=== PATIENT | male | born 1950 | race Caucasian/White ===

== ENCOUNTER 2021-03-27 16:44 | Observation (INO) ==
[2021-03-27] MEDS ORDERED: NORMAL SALINE 1,000 ML IV ONE (17:04)
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
[2021-03-27 17:17] LABS: Hematocrit 33.4 % (42.0-52.0); Mean Cell Volume 99.7 fl (78-100); Mean Corpuscular Hemoglobin 35.8 pg (27-31); Mean Corpuscular Hgb Conc 35.9 g/dl (32-36); Mean Platelet Volume 7.9 fl (8-11.3); Platelet Count 179 K/mm3 (150-450); Red Blood Count 3.35 M/mm3 (4.7-6.0); Red Cell Distribution Width 14.7 % (11.5-14.0); White Blood Count 11.3 K/mm3 (4.0-10.5)
[2021-03-27 17:25] LABS: Total Cells Counted 100
[2021-03-27 17:30] LABS: Albumin * 3.4 gm/dl (3.4-5.0); Anion Gap 10.5 mmol/L (6.8-13.8); Bilirubin, Total 0.8 mg/dL (0.0-1.1); Ca. Corrected For Albumin 8.9 mg/dL (8.4-10.2); Calcium * 8.7 mg/dL (7.9-10.9); Carbon Dioxide 25.1 mmol/L (24-32.6); Potassium 3.6 mmol/L (3.4-4.6); Total Protein 6.4 gm/dL (6.2-8.2)
[2021-03-27 17:39] LABS: Band 1 % (0-2.0); Lymphocyte 16 % (20-51); Monocyte 14 % (0-9); Neutrophil 69 % (42-75); Neutrophil # 7.8 K/mm3 (1.3-6.0); Platelet Estimate Normal (NORMAL); RBC Morphology Normal (NORMAL)
[2021-03-27 17:55] LABS: Urine Appearance Clear (CLEAR); Urine Bilirubin Negative (NEGATIVE); Urine Color Yellow; Urine Ketone Negative (NEGATIVE)
[2021-03-27 17:56] LABS: Urine Bacteria None Seen; Urine Blood 5 /ul (NEGATIVE); Urine Nitrite Negative (NEGATIVE); Urine Protein Negative (NEGATIVE); Urine RBC 0-5 /hpf (0-5); Urine Urobilinogen Normal (NORMAL); Urine WBC 0-5 /hpf (0-5); Urine pH 5.5 pH (5.0-7.0)
--- NOTE | 2021-03-27 20:05 | HP ---
Chief Complaint - Chief Complaint Date of Service: 03/27/21 Time of Service: 20:05 Chief Complaint: frequent falls History of Present Illness: Patient with PMHx of Stage IV lung cancer with liver mets, diabetes, depression presented to the ED after several falls at home. He estimates he's fallen about 15 times in the last couple of weeks. He was reluctant to come in, but his insisted. He was diagnosed with lung cancer about a year ago, and is undergoing chemo in [place]. His chemo was changed about 6 weeks ago. He is not sure what is making him fall, but feels like he has poor balance. Denies fever, sore throat, cough, CP, SOB, diarrhea, dysuria. Workup in the ED showed hyponatremia with sodium of 119, but no other acute findings. WBC slightly high at 11.3, hgb slightly low at 12.0. BP slightly high, 150's/70's, and his RR was briefly high in the ED. He is pleasant and conversational on exam. He has venous stasis changes of his bilateral lower extremities, and extremely flaky skin, which he reports has been present for 30+ years. His legs have also been sensitive to touch, also for several decades. His left hand wrist and very painful and swollen, but no obvious fracture seen on xrays - official read pending. He is admitted for fluids for hyponatremia felt to be due to possible SIADH, but will review [facility] records for more info. Will also order PT eval. Medical History (Last Reviewed 03/27/21 @ 19:47 by Mary Palmer RN) Diabetes mellitus History of COPD History of inguinal hernia History of liver cancer Hx of cancer of lung Hx of cardiac arrhythmia Hx of colonic polyps Surgical History: Surgical History (Last Reviewed 03/27/21 @ 19:47 by Mary Palmer RN) H/O hernia repair Hx of colonoscopy Family History: Family History (Last Reviewed 03/27/21 @ 19:47 by Mary Palmer RN) Other No pertinent family history Social History: (Last Updated 03/27/21 @ 20:05 by Mary Palmer RN) Tobacco: Smoking Status: Current every day smoker tobacco type: cigars Smoking cigarettes per day: 20 Alcohol: alcohol intake: former Dietary Habits: caffeine: Yes Type: coffee Review Of Systems (GEN) - Review of Systems Generalized/Overall Review: Present: Weakness. Absent: Fever EENTM: Absent: Throat Pain Respiratory: Absent: Cough, Shortness of Breath Cardiac: Absent: Chest Pain, Edema Abdominal: Present: Constipation, Other - decreased appetite Genitourinary: Absent: Dysuria Musculoskeletal: Present: Joint Pain - left wrist, bilateral legs Neurological: Present: Other - frequent falls Skin: Present: Other - flaky skin of feet, ankles, lower legs Immunizations: IMMUNIZATION HX Immunizations Up to Date Yes History of Influenza Vaccine Yes Hx Pneumococcal Vaccination Yes Allergies/Adverse Reactions: Allergies Allergy/AdvReac Type Severity Reaction Status Date / Time No Known Allergies Allergy Verified 01/30/20 11:35 Home Medications: HOME MEDICATIONS Glimepiride 0.5 mg PO BID 05/11/18 [Last Taken Unknown] metFORMIN HCL [Metformin HCl] 500 mg PO BID 05/11/18 [Last Taken Unknown] Famotidine 20 mg PO DAILY 03/27/21 [Last Taken Unknown] Furosemide 20 mg PO DAILY 03/27/21 [Last Taken Unknown] Sertraline HCl [Zoloft] 50 mg PO HS 03/27/21 [Last Taken Unknown] Exam - Exam Vital Signs: Vital Signs - Last Taken Temp 36.9 C 03/27/21 19:50 Pulse 91 03/27/21 19:50 Resp 18 03/27/21 19:50 BP 158/75 H 03/27/21 19:50 Pulse Ox 95 03/27/21 19:50 Constitutional: Present: Alert, Cooperative, No distress Respiratory: Present: normal breath sounds, no respiratory distress Cardiovascular/Chest: Present: regular rate, rhythm Abdomen: Present: nontender, firm Extremity: Present: lower extremity edema, other - left hand and wrist swelling, limited ROM, no skin wound Skin Exam: Present: other - extensive flakiness of bilateral lower legs and feet, thickened toenails Neurologic: Present: normal mood/affect Eye contact: Present: cooperative, good eye contact Diagnostic Studies: Abnormal Lab Results 03/27/21 03/27/21 03/27/21 Range/Units 17:12 17:12 17:46 WBC 11.3 H (4.0-10.5) K/mm3 RBC 3.35 L (4.7-6.0) M/mm3 Hgb 12.0 L (13.5-18.0) gm/dL Hct 33.4 L (42.0-52.0) % MCH 35.8 H (27-31) pg RDW 14.7 H (11.5-14.0) % MPV 7.9 L (8-11.3) fl Lymphocytes % (Manual) 16 L (20-51) % Monocytes % (Manual) 14 H (0-9) % Neutrophils # (Manual) 7.8 H (1.3-6.0) K/mm3 Monocytes # (Manual) 1.6 H (0.0-1.0) k/mm3 Sodium 119 L (132-142) mmol/L Plasma Sodium 120 L (130-142) mmol/L Chloride 87 L (97-106) mmol/L Random Glucose 165 H (70-110) mg/dL ALT 17 L (19-67) U/L Urine Glucose (UA) >=1000 H (NEGATIVE) mg/dL Urine Blood 5 H (NEGATIVE) /ul Laboratory Results WBC 11.3 K/mm3 (4.0-10.5) H 03/27/21 17:12 RBC 3.35 M/mm3 (4.7-6.0) L 03/27/21 17:12 Hgb 12.0 gm/dL (13.5-18.0) L 03/27/21 17:12 Hct 33.4 % (42.0-52.0) L 03/27/21 17:12 MCV 99.7 fl (78-100) 03/27/21 17:12 MCH 35.8 pg (27-31) H 03/27/21 17:12 MCHC 35.9 g/dl (32-36) 03/27/21 17:12 RDW 14.7 % (11.5-14.0) H 03/27/21 17:12 Plt Count 179 K/mm3 (150-450) 03/27/21 17:12 MPV 7.9 fl (8-11.3) L 03/27/21 17:12 Neutrophils % (Manual) 69 % (42-75) 03/27/21 17:12 Band Neuts % (Manual) 1 % (0-2.0) 03/27/21 17:12 Lymphocytes % (Manual) 16 % (20-51) L 03/27/21 17:12 Monocytes % (Manual) 14 % (0-9) H 03/27/21 17:12 Neutrophils # (Manual) 7.8 K/mm3 (1.3-6.0) H 03/27/21 17:12 Lymphocytes # (Manual) 1.8 k/mm3 (1.5-3.5) 03/27/21 17:12 Monocytes # (Manual) 1.6 k/mm3 (0.0-1.0) H 03/27/21 17:12 Platelet Estimate Normal (NORMAL) 03/27/21 17:12 RBC Morphology Normal (NORMAL) 03/27/21 17:12 Sodium 119 mmol/L (132-142) L 03/27/21 17:12 Plasma Sodium 120 mmol/L (130-142) L 03/27/21 17:12 Potassium 3.6 mmol/L (3.4-4.6) 03/27/21 17:12 Chloride 87 mmol/L (97-106) L 03/27/21 17:12 Carbon Dioxide 25.1 mmol/L (24-32.6) 03/27/21 17:12 Anion Gap 10.5 mmol/L (6.8-13.8) 03/27/21 17:12 BUN 15 mg/dL (6-23) 03/27/21 17:12 Creatinine 0.79 mg/dL (0.4-1.4) 03/27/21 17:12 Est GFR (Non-Af Amer) 104 mL/min (60-130) D 03/27/21 17:12 BUN/Creatinine Ratio 19.0 (9.0-21.6) 03/27/21 17:12 Random Glucose 165 mg/dL (70-110) H 03/27/21 17:12 Calcium 8.7 mg/dL (7.9-10.9) 03/27/21 17:12 Calcium Adj for Albumin 8.9 mg/dL (8.4-10.2) 03/27/21 17:12 Total Bilirubin 0.8 mg/dL (0.0-1.1) 03/27/21 17:12 AST 16 U/L (0-48) 03/27/21 17:12 ALT 17 U/L (19-67) L 03/27/21 17:12 Alkaline Phosphatase 100 U/L (50-170) 03/27/21 17:12 Total Protein 6.4 gm/dL (6.2-8.2) 03/27/21 17:12 Albumin 3.4 gm/dl (3.4-5.0) 03/27/21 17:12 Urine Color Yellow 03/27/21 17:46 Urine Appearance Clear (CLEAR) 03/27/21 17:46 Urine pH 5.5 pH (5.0-7.0) 03/27/21 17:46 Ur Specific [place] 1.020 SP.GR. (1.005-1.030) 03/27/21 17:46 Urine Protein Negative mg/dL (NEGATIVE) 03/27/21 17:46 Urine Glucose (UA) >=1000 mg/dL (NEGATIVE) H 03/27/21 17:46 Urine Ketones Negative mg/dL (NEGATIVE) 03/27/21 17:46 Urine Blood 5 /ul (NEGATIVE) H 03/27/21 17:46 Urine Nitrate Negative (NEGATIVE) 03/27/21 17:46 Urine Bilirubin Negative mg/dl (NEGATIVE) 03/27/21 17:46 Urine Urobilinogen Normal EU/dl (NORMAL) 03/27/21 17:46 Ur Leukocyte Esterase Negative /ul (NEGATIVE) 03/27/21 17:46 Urine RBC 0-5 /hpf (0-5) 03/27/21 17:46 Urine WBC 0-5 /hpf (0-5) 03/27/21 17:46 Ur Epithelial Cells 0-5 /hpf (0-5) 03/27/21 17:46 Urine Bacteria None seen (NONE) 03/27/21 17:46 Urine Culture Comments No culture indicated 03/27/21 17:46 SARS-CoV-2 (PCR) Not detected (NotDetected) 03/27/21 17:38 Assessment/Plan - Narrative Narrative: Will check [facility] records to see his baseline sodium levels, and see if this is a new problem for him, or if it's already been evaluated. If not, can obtain labs to assess for SIADH. Will administer maintenance rate NS tonight, at 125 cc/hr, and recheck CMP in the morning. PT eval for frequent falls, but likely due to his hyponatremia. He also reports decades of skin changes that make it difficult to walk, and painful legs. Will review notes from his PCP regarding possible etiology. He is undergoing chemo at [facility] for lung cancer. 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 If his sodium improves and PT eval goes well, he may DC home as soon as tomorrow. - Assessment/Plan (1) Hyponatremia Problem: Acute (2) Left wrist injury Assessment: Will attempt to procure a splint for him tomorrow. He usually uses tylenol for pain. Problem: Acute (3) Venous stasis dermatitis of both lower extremities Assessment: He has seen dermatology for this, and does biweekly foot scrubs, without improvement in his skin. Will attempt to find dermatology records regarding treatment. Problem: Chronic (4) Small cell lung carcinoma Problem: Chronic (5) Diabetes Assessment: He doesn't remember what his last A1C was. Will continue his home meds. His admission glucose was 165. Problem: Chronic
[2021-03-27] MEDS: NORMAL SALINE 1,000 ML IV PRN (20:33)
[2021-03-28] MEDS: NORMAL SALINE 1,000 ML IV PRN (04:40)
[2021-03-28 06:34] LABS: Albumin * 3.1 gm/dl (3.4-5.0); Anion Gap 12.5 mmol/L (6.8-13.8); BUN/Creatinine Ratio 14.9 (9.0-21.6); Bilirubin, Total 0.6 mg/dL (0.0-1.1); Ca. Corrected For Albumin 8.6 mg/dL (8.4-10.2); Calcium * 8.2 mg/dL (7.9-10.9); Carbon Dioxide 24.9 mmol/L (24-32.6); Potassium 3.4 mmol/L (3.4-4.6); Total Protein 6.1 gm/dL (6.2-8.2)
--- NOTE | 2021-03-28 11:41 | DS ---
(1) Hyponatremia Diagnosis(s): Acute/chronic. Baseline from the last few weeks appears to be around 132. Was 135 in February 2021. Problem: Acute (2) Left wrist injury Problem: Acute (3) Venous stasis dermatitis of both lower extremities Problem: Chronic (4) Small cell lung carcinoma Problem: Chronic (5) Diabetes Problem: Chronic Date of Discharge:: 03/28/21 Hospital Course: Patient with PMHx of Stage IV lung cancer with liver mets, diabetes, depression presented to the ED after several falls at home. He estimates he's fallen about 15 times in the last couple of weeks. He was diagnosed with lung cancer about a year ago, and is undergoing chemo in [place]. His chemo was changed about 6 weeks ago. He feels like he has poor balance. Denies fever, sore throat, cough, CP, SOB, diarrhea, dysuria. Workup in the ED showed hyponatremia with sodium of 119, but no other acute findings. WBC slightly high at 11.3, hgb slightly low at 12.0. BP slightly high, 150's/70's, and his RR was briefly high in the ED. He has venous stasis changes of his bilateral lower extremities, and extremely flaky skin, which he reports has been present for 30+ years. His legs have also been sensitive to touch, also for several decades. His left hand wrist and very painful and swollen, but no fracture seen on xrays. He was given NS overnight at a maintenance rate, and sodium improved to 130 in the morning. Review of [facility] records shows his sodium was 132 on 03/15/21. He was evaluated by PT, and did well with a walker. He feels comfortable going home on the day of DC. 40 minutes spent on DC, with patient assessment, [facility] chart review, and note writing. Procedures Performed: none Results and Findings: Lab Pending Results 03/27/21 17:12: WBC 11.3 H, RBC 3.35 L, Hgb 12.0 L, Hct 33.4 L, MCV 99.7, MCH 35.8 H, MCHC 35.9, RDW 14.7 H, Plt Count 179, MPV 7.9 L, Neutrophils % (Manual) 69, Band Neuts % (Manual) 1, Lymphocytes % (Manual) 16 L, Monocytes % (Manual) 14 H, Neutrophils # (Manual) 7.8 H, Lymphocytes # (Manual) 1.8, Monocytes # (Manual) 1.6 H, Platelet Estimate Normal, RBC Morphology Normal 03/27/21 17:12: Sodium 119 L, Plasma Sodium 120 L, Potassium 3.6, Chloride 87 L, Carbon Dioxide 25.1, Anion Gap 10.5, BUN 15, Creatinine 0.79, Est GFR (Non-Af Amer) 104 D, BUN/Creatinine Ratio 19.0, Random Glucose 165 H, Calcium 8.7, Calcium Adj for Albumin 8.9, Total Bilirubin 0.8, AST 16, ALT 17 L, Alkaline Phosphatase 100, Total Protein 6.4, Albumin 3.4 03/27/21 17:38: SARS-CoV-2 (PCR) Not detected 03/27/21 17:46: Urine Color Yellow, Urine Appearance Clear, Urine pH 5.5, Ur Specific [place] 1.020, Urine Protein Negative, Urine Glucose (UA) >=1000 H, Urine Ketones Negative, Urine Blood 5 H, Urine Nitrate Negative, Urine Bilirubin Negative, Urine Urobilinogen Normal, Ur Leukocyte Esterase Negative, Urine RBC 0-5, Urine WBC 0-5, Ur Epithelial Cells 0-5, Urine Bacteria None seen, Urine Culture Comments No culture indicated 03/28/21 06:10: Sodium 130 L, Plasma Sodium 131, Potassium 3.4, Chloride 96 L, Carbon Dioxide 24.9, Anion Gap 12.5, BUN 10, Creatinine 0.67, Est GFR (Non-Af Amer) 125 D, BUN/Creatinine Ratio 14.9, Random Glucose 145 H, Calcium 8.2, Calcium Adj for Albumin 8.6, Total Bilirubin 0.6, AST 17, ALT 15 L, Alkaline Phosphatase 98, Total Protein 6.1 L, Albumin 3.1 L Discharge Location: Home Disposition: Home self-care Condition: Fair Discharge Activity: Activity as tolerated Discharge Diet: General/regular food Referrals: GISELL MEJIA [Non Staff Physicians] - One Week Complete Home Medications List: Complete Home Medication List: Glimepiride 0.5 mg PO BID 05/11/18 metFORMIN HCL [Metformin HCl] 500 mg PO BID 05/11/18 Famotidine 20 mg PO DAILY 03/27/21 Furosemide 20 mg PO DAILY 03/27/21 Sertraline HCl [Zoloft] 50 mg PO HS 03/27/21 Aspirin [Low Dose Aspirin EC] 81 mg PO DAILY 03/28/21 Forms: Patient Portal Registration
[2021-03-28 14:55] VITALS: BP 127/58
== END 2021-03-28 14:50 | disposition home or self-care (01) ==
LOC: MS 16:44 → ER 16:44 → MS 19:48
PROVIDERS: ADMIT Family Medicine; ATTEND Family Medicine
DX: S60.222A Contusion of left hand, initial encounter; Z72.0 Tobacco use; I87.2 Venous insufficiency (chronic) (peripheral); C34.90 Malignant neoplasm of unspecified part of unspecified bronchus or lung; R29.6 Repeated falls; E11.9 Type 2 diabetes mellitus without complications; E87.1 Hypo-osmolality and hyponatremia; C78.7 Secondary malignant neoplasm of liver and intrahepatic bile duct